=== PATIENT | female | born 2000 | race African-American/Black ===

== ENCOUNTER 2019-12-09 12:44 | Emergency (ER) | payer MEDICAID ==
--- NOTE | 2019-12-09 13:18 | EDM.PDOC ---
ED HPI GENERAL MEDICAL PROBLEM - General Chief Complaint: Chest Pain Stated Complaint: SOB Time Seen by Provider: 12/09/19 12:56 Source of Information: Reports: Patient History Limitations: Reports: No Limitations - History of Present Illness INITIAL COMMENTS - FREE TEXT/NARRATIVE: Pt. left AMA when mother was upset that she was told her other child should be screened for covid 19 in the clinic. Advised Mom that we could work up Margot and she could return, but she states "I'm no leaving my child." Pt. subsequently signed out AMA, and was advised to seek medical attention [facility]. Onset Date: 12/07/19 Chest Pain Score (Numeric/FACES): 6 - Related Data Allergies Allergy/AdvReac Type Severity Reaction Status Date / Time ibuprofen Allergy Cardiac Verified 12/09/19 13:09 Arrest topiramate Allergy Hallucinati Verified 12/09/19 13:09 ons Home Meds: Home Meds . [No Known Home Meds] 12/09/19 [History] ED ROS GENERAL - Review of Systems Review Of Systems: Unable To Obtain Reason Not Obtained: left without being seen ED EXAM, GENERAL - Physical Exam Exam: See Below Reason Not Obtained: left without being seen Course - Vital Signs Last Recorded V/S: Last Vital Signs Temp 37.1 C 12/09/19 12:48 Pulse 134 H 12/09/19 12:48 Resp 20 12/09/19 12:48 BP 150/92 H 12/09/19 12:48 Pulse Ox 99 12/09/19 12:48 Departure - Departure Time of Disposition: 13:13 Disposition: Against Medical Advice 07 Clinical Impression: Chest pain - Discharge Information Sepsis Event Note - Evaluation Sepsis Screening Result: No Definite Risk - Focused Exam Vital Signs: Vital Signs Temp Pulse Resp BP Pulse Ox 12/09/19 12:48 37.1 C 134 H 20 150/92 H 99 Date Exam was Performed: 12/09/19 Time Exam was Performed: 13:09
== END 2019-12-09 12:56 | disposition left against medical advice (07) ==
LOC: VM.ED 12:44
DX: Z53.21 Procedure and treatment not carried out due to patient leaving prior to being seen by health care provider (principal)